=== PATIENT | female | born 2000 ===

== ENCOUNTER 2023-12-11 11:52 | Inpatient (IN) | payer OTHER ==
[~2023-12-11] VITALS: Ht 152.4 cm; Wt 49.9 kg
[2023-12-11] MEDS ORDERED: 0.9 % SODIUM CHLORIDE 1,000 ML IV SCH (13:30)
[2023-12-11 14:14] LABS: HEMATOCRIT 33.9 % (36.0-45.00); HEMOGLOBIN 11.4 g/dL (12.0-15.00); MEAN CELL VOLUME 83.1 fL (80.00-100.00); MEAN CORPUSCULAR HEMOGLOBIN 27.9 pg (27.00-32.0); MEAN CORPUSCULAR HGB CONC 33.5 g/dl (32.0-36.0); PLATELET COUNT 450 K/uL (150-450); RED BLOOD COUNT 4.08 M/uL (4.00-6.00); RED CELL DISTRIBUTION WIDTH 14.6 % (11.5-14.5)
[2023-12-11 14:23] LABS: CALCIUM 9.4 mg/dL (8.5-10.1); CREATININE SERUM 0.47 mg/dL (0.55-1.02); GFR 161.46; POTASSIUM 4.08 mEq/L (3.5-5.1)
[2023-12-11 14:55] LABS: ABG PH 7.436 (7.35-7.45); ABG PO2 90.1 mmHg (80-100); ABG pCO2 37.5 mmHg (35-45); BASE EXCESS 0.8 mmol/l; BICARBONATE 24.7 mmol/l (23-25); SaO2 97.3 %; Tco2 25.9 mmol/l; allen test SATISFACTORY; o2 21 %; puncture site RADIAL RIGHT
[2023-12-11] MEDS ORDERED: FAMOTIDINE/PF 20 MG/2 ML VIAL IV SCH (18:45)
[2023-12-11] MEDS ORDERED: AZITHROMYCIN 500 MG in 0.9 % SODIUM CHLORIDE 250 ML IV SCH (18:45)
[2023-12-11] MEDS ORDERED: GUAIFENESIN 200 MG/10 ML BLIST.PACK PO SCH (18:53)
[2023-12-11] MEDS ORDERED: ACETAMINOPHEN 325 MG TABLET PO PRN (19:00)
[2023-12-12] MEDS ORDERED: CEFTRIAXONE SODIUM 2,000 MG in 0.9 % SODIUM CHLORIDE 100 ML IV SCH (18:11)
[2023-12-12] MEDS ORDERED: TUBERCULIN,PURIF.PROT.DERIV. 10 SKIN.TEST SKIN.TEST ID ONE (18:15)
[2023-12-12] MEDS ORDERED: DOXYCYCLINE HYCLATE 100 MG in 0.9 % SODIUM CHLORIDE 250 ML IV SCH (21:00)
[2023-12-12 21:04] LABS: MYCOPLASMA PNEUMONIAE IGM NON REACTIVE (NO REACTIVE)
[2023-12-13 08:41] LABS: HEMATOCRIT 32.6 % (36.0-45.00); HEMOGLOBIN 10.7 g/dL (12.0-15.00); MEAN CELL VOLUME 83.1 fL (80.00-100.00); MEAN CORPUSCULAR HEMOGLOBIN 27.2 pg (27.00-32.0); MEAN CORPUSCULAR HGB CONC 32.7 g/dl (32.0-36.0); PLATELET COUNT 470 K/uL (150-450); RED BLOOD COUNT 3.92 M/uL (4.00-6.00); RED CELL DISTRIBUTION WIDTH 14.7 % (11.5-14.5)
[2023-12-13 08:59] LABS: ALBUMIN 2.6 gm/dL (3.4-5.0); BILIRUBIN TOTAL 0.24 mg/dL (0.3-1.2); CALCIUM 8.5 mg/dL (8.5-10.1); CREATININE SERUM 0.53 mg/dL (0.55-1.02); GFR 140.55; GLOBULINA 4.2 G/DL (2.4-3.5); POTASSIUM 3.99 mEq/L (3.5-5.1); TOTAL PROTEIN 6.8 gm/dL (6.4-8.2)
[2023-12-13 09:04] LABS: C-REACTIVE PROTEIN 11.3 MG/DL (0.00-0.29)
[2023-12-13] MEDS ORDERED: CEFEPIME HCL 2,000 MG in 0.9 % SODIUM CHLORIDE 100 ML IV SCH (17:00)
[2023-12-13] MEDS ORDERED: LINEZOLID 600 MG TABLET PO SCH (21:00)
[2023-12-14] MEDS ORDERED: FAMOtidine 20 MG TABLET PO SCH (17:00)
[2023-12-15 06:53] LABS: HEMOGLOBIN 10.9 g/dL (12.0-15.00); MEAN CELL VOLUME 84.8 fL (80.00-100.00); MEAN CORPUSCULAR HGB CONC 34.1 g/dl (32.0-36.0); PLATELET COUNT 495 K/uL (150-450); RED BLOOD COUNT 3.77 M/uL (4.00-6.00); RED CELL DISTRIBUTION WIDTH 14.2 % (11.5-14.5)
[2023-12-16 06:00] LABS: HEMATOCRIT 31.3 % (36.0-45.00); HEMOGLOBIN 10.4 g/dL (12.0-15.00); MEAN CELL VOLUME 84.7 fL (80.00-100.00); MEAN CORPUSCULAR HGB CONC 33.1 g/dl (32.0-36.0); PLATELET COUNT 510 K/uL (150-450); RED BLOOD COUNT 3.69 M/uL (4.00-6.00); RED CELL DISTRIBUTION WIDTH 14.9 % (11.5-14.5)
[2023-12-16] MEDS ORDERED: IPRATROPIUM BROMIDE 0.5 MG/2.5 ML AMPUL.NEB IH SCH (13:06)
[2023-12-16] MEDS ORDERED: ALBUTEROL SULFATE 3 ML/2.5 MG AMPUL.NEB IH SCH (17:00)
[2023-12-16] MEDS ORDERED: SODIUM CHLORIDE FOR INHALATION 1 VIAL.NEB IH SCH (17:00)
[2023-12-16] MEDS ORDERED: DOXYCYCLINE HYCLATE 100 MG CAPSULE PO SCH (21:00)
[2023-12-20 11:31] LABS: HEMATOCRIT 32.7 % (36.0-45.00); HEMOGLOBIN 10.7 g/dL (12.0-15.00); MEAN CELL VOLUME 84.6 fL (80.00-100.00); MEAN CORPUSCULAR HEMOGLOBIN 27.7 pg (27.00-32.0); MEAN CORPUSCULAR HGB CONC 32.7 g/dl (32.0-36.0); PLATELET COUNT 501 K/uL (150-450); RED BLOOD COUNT 3.87 M/uL (4.00-6.00); RED CELL DISTRIBUTION WIDTH 14.8 % (11.5-14.5)
[2023-12-20 11:50] LABS: ALBUMIN 2.9 gm/dL (3.4-5.0); BILIRUBIN TOTAL 0.4 mg/dL (0.3-1.2); CALCIUM 9.2 mg/dL (8.5-10.1); CREATININE SERUM 0.55 mg/dL (0.55-1.02); GFR 134.67; GLOBULINA 4.6 G/DL (2.4-3.5); POTASSIUM 3.73 mEq/L (3.5-5.1); TOTAL PROTEIN 7.5 gm/dL (6.4-8.2)
[2023-12-22] MEDS ORDERED: PYRAZINAMIDE 500 MG TABLET PO SCH (17:00)
[2023-12-22] MEDS ORDERED: ISONIAZID 300 MG TABLET PO SCH (17:00)
[2023-12-22] MEDS ORDERED: ETHAMBUTOL HCL 400 MG TABLET PO SCH (17:00)
[2023-12-22] MEDS ORDERED: RIFAMPIN 300 MG CAPSULE PO SCH (17:00)
[2023-12-22] MEDS ORDERED: PYRIDOXINE HCL 50 MG TABLET PO SCH (17:00)
[2023-12-23] MEDS ORDERED: RIFAMPIN 300 MG CAPSULE PO SCH (09:00)
[2023-12-23] MEDS ORDERED: PYRAZINAMIDE 500 MG TABLET PO SCH (09:00)
[2023-12-23] MEDS ORDERED: PYRIDOXINE HCL 50 MG TABLET PO SCH (09:00)
[2023-12-23 15:07] LABS: quan ag 0.56 IU/mL (.); quan ag 5.12 IU/mL (.); quan mito 1.04 IU/mL (.); quant nil 0.09 IU/mL (.)
[2023-12-23] MEDS ORDERED: PYRIDOXINE HCL 100 MG TABLET PO SCH (17:00)
[2023-12-23] MEDS ORDERED: ETHAMBUTOL HCL 400 MG TABLET PO SCH (17:00)
[2023-12-31 19:32] LABS: ALBUMIN 3.5 gm/dL (3.4-5.0); BILIRUBIN TOTAL 0.36 mg/dL (0.3-1.2); CALCIUM 9.4 mg/dL (8.5-10.1); CREATININE SERUM 0.7 mg/dL (0.55-1.02); GFR 101.95; GLOBULINA 4.5 G/DL (2.4-3.5); POTASSIUM 4.13 mEq/L (3.5-5.1)
[2024-01-08 08:37] LABS: ALBUMIN 4.1 gm/dL (3.4-5.0); BILIRUBIN TOTAL 0.44 mg/dL (0.3-1.2); BILIRUBIN,CONJUGATED 0.11 mg/dL (0.0-0.2); BILIRUBIN,UNCONJUGATED 0.33 mg/dL (0.0-0.6); CALCIUM 9.7 mg/dL (8.5-10.1); CREATININE SERUM 0.64 mg/dL (0.55-1.02); GFR 113.06; GLOBULINA 4.5 G/DL (2.4-3.5); POTASSIUM 4.21 mEq/L (3.5-5.1); TOTAL PROTEIN 8.6 gm/dL (6.4-8.2)
[2024-01-14] MEDS ORDERED: PYRIDOXINE HCL 100 MG TABLET PO SCH (17:00)
== END 2024-01-13 20:00 | disposition home or self-care (01) | DRG 177 ==
LOC: ER 11:52 → MEDJ 20:41
PROVIDERS: Emergency Medicine; Internal Medicine; Internal Medicine Infectious Disease; Student in an Organized Health Care Education/Training Program; ADMIT Internal Medicine; ATTEND Internal Medicine
PROC: BW24ZZZ Computerized Tomography (CT Scan) of Chest and Abdomen (ICD-10-PCS; principal; 2023-12-12)
PROC: BW24ZZZ Computerized Tomography (CT Scan) of Chest and Abdomen (ICD-10-PCS; 2024-01-09)
DX: A15.0 Tuberculosis of lung (principal); A41.9 Sepsis, unspecified organism; J18.9 Pneumonia, unspecified organism